=== PATIENT | male | born 1990 | race Caucasian/White ===

== ENCOUNTER 2020-08-25 10:42 | Emergency (ER) | payer MEDICAID, SELFPAY ==
[2020-08-25 10:54] VITALS: BP 144/102; PULSE 98; RESP 18; O2SAT 97
--- NOTE | 2020-08-25 11:15 | DI.RAD_ITS ---
EXAM: XR LUMBAR SPINE COMPLETE CLINICAL HISTORY: bending/lifting injury. felt pop. TECHNIQUE: 2D digital imaging was performed. COMPARISON: No exams were available for comparison FINDINGS: There is no evidence of fracture, listhesis, or pars defects. All of the disc spaces in the lumbar s pine exhibit normal height. No osseous lesions. No facet arthropathy. No scoliosis. Sacroiliac juan ints appear unremarkable. IMPRESSION: No significant radiographic findings on these five views of the lumbosacral spine DATA REPOSITORY: RADIATION DOSE DELIVERED:
--- NOTE | 2020-08-25 11:31 | ED.GENADUL_ITS ---
Discharge Plan Disposition Patient Disposition: HOME Condition: Stable Discharge Details Clinical Impression: Back pain Primary Care Provider: None,None ED Provider: Wiliam Petit Home Meds and New Rx's Prescriptions: New lidocaine [Lidoderm] 5 % adhesive patch,medicated 1 patch topical DAILY Qty: 15 RF: 0 naproxen [Naprosyn] 500 mg tablet 500 mg PO BID PRNQty: 20 RF: 0 Continued calcium carbonate [Tums] 200 MG tablet,chewable 400 mg PO PRN PRNRF: 0 acetaminophen 500 mg Capsule 1,000 mg PO Q6H PRNRF: 0 Discharge Instructions Instructions: Back Pain (ED) Additional Instructions: X-ray unremarkable for any obvious emergent process. Lidoderm patches and Naprosyn as directed. Gentle stretching as tolerated. Cool and/or warm compresses every 2 hours for 20 minutes. Please watch for new or worsening symptoms and return to the ER for any concerns. I have placed you onto the care management list, they should be contacting you over the next couple of business days to help expedite outpatient primary care provider. As we discussed outpatient MRI may be indicated for your ongoing back pain if you do not respond to conservative care. Medical Decision Making 29-year-old gentleman with chronic back pain injured his back 2 days ago while attempting to lift a trailer hitch. Was bent over, lifted, felt and heard a pop. Reports pain and tingling shooting down his left leg along the posterior aspect but not past his knee. Denies numbness or weakness. Denies incontinence or retention both bowel and bladder. Clinically he is neurologically intact, appears nontoxic, but is uncomfortable. Discussed options, will provide a single injection of IM Toradol, Lidoderm patch, and obtain a lumbar spine x-ray. He does not have a primary care provider and therefore I will place him on the care management list to help expedite outpatient care, we did discuss the importance and likelihood of potential MRI for his ongoing symptoms. He has used physical therapy in the past, and does not want to move forward with the sickle therapy as he felt as though it was not very helpful. X-ray of his lumbar spine read by me is unremarkable, confirmed by radiology. Discussed x-ray findings and disposition with patient. He reports moderate relief with the medications however upon movement his pain does increase. He remains neurologically intact. He has no additional questions or concerns and is comfortable discharge at this time. Medical Records Medical records reviewed: Yes I reviewed the patient's medical records. HPI General Mode of arrival: ambulatory . Date/Time Provider Initiated Documentation: 08/25/20 11:00 . Limitations to Documentation: no limitations . Information obtained by: patient . HPI Narrative: This is a 29-year-old gentleman who reports a history of chronic back pain, exacerbated 2 days ago. He reports 2 days ago he was attempting to lift a trailer hitch, it was frozen, in the process of being bent over and lifting he felt and heard a pop in his left lower back. He reports that his typical pain is moderate however this is severe, worse with movement. He has pain and tingling that radiates down his left leg along the posterior aspect to his knee but not below the knee. He denies any recent illness or trauma. He denies any abdominal pain, nausea, vomiting, urinary or bladder retention or incontinence, numbness or tingling in his groin, symptoms down his right leg. He has taken [id number] Tylenol with minimal relief. He does not have a local primary care provider. He has tried physical therapy in the past but discontinued it because he felt as though it was too painful. Patient has never had an MRI for his chronic back pain. Reports marijuana use, no other drug use. Related Data Home Medications Medication Instructions Recorded Confirmed calcium carbonate [Tums] 400 mg PO PRN PRN 02/01/16 08/25/20 acetaminophen 1,000 mg PO Q6H PRN 08/25/20 08/25/20 lidocaine [Lidoderm] 1 patch TOPICAL DAILY #15 ea 08/25/20 naproxen [Naprosyn] 500 mg PO BID PRN #20 tab 08/25/20 Previous Rx's Medication Instructions Recorded lidocaine [Lidoderm] 1 patch TOPICAL DAILY #15 ea 08/25/20 naproxen [Naprosyn] 500 mg PO BID PRN #20 tab 08/25/20 Allergies Allergy/AdvReac Type Severity Reaction Status Date / Time No Known Allergies Allergy Unverified 08/25/20 10:58 General Stated Complaint: Nk/Back Pain JESUS: 3 Review of Systems Constitutional Constitutional: Denies fever(s) and Denies weakness Cardiovascular Cardiovascular: Denies chest pain and Denies dyspnea Respiratory Respiratory: Denies dyspnea Gastrointestinal Gastrointestinal: Denies abdominal pain, Denies constipation, Denies fecal incontinence, Denies nausea and Denies vomiting Genitourinary Genitourinary: Denies urinary hesitancy and Denies urinary incontinence Musculoskeletal Musculoskeletal: Reports back pain, Denies numbness, Reports stiffness and Reports tingling Integumentary/Breasts Skin/Breast: Denies erythema Neurologic Neurologic: Denies numbness, Reports tingling and Denies weakness [facility] Social History Smoking/Tobacco Use Status: Current every day Tobacco Type: cigarettes Smoking risk assessment performed?: Yes Alcohol Intake: current Alcohol Intake frequency: holidays/special occasions only Drug use: Daily Substance use type: marijuana Do you feel safe at home: Yes Do you feel safe in your relationship?: Yes Exam Const General: cooperative, healthy appearing and no acute distress Orientation: alert, awake and oriented x3 HENMT Head: normal to inspection, normocephalic and atraumatic Eyes General: appearance normal, both eyes and all related structures Conjunctivae: conjunctivae normal Sclera: sclerae normal Neck Neck: normal visual inspection, full ROM, trachea midline and supple Resp Effort & Inspection: normal respiratory effort and able to speak in complete sentences Auscultation: clear to auscultation bilaterally Cardio Rate: regular rate Rhythm: regular rhythm GI Palpation: soft and nontender Back/Spine/Pelvis Back: no CVA tenderness and back tenderness Thoracic/Lumbar Spine: thoracic and lumbar spine normal to inspection, pain with thoraco-lumbar ROM, paraspinal tenderness (Left-sided), thoraco-lumbar ROM limited (Patient unable to fully extend secondary to increased pain), No thoraco-lumbar spasm and No thoracic spinal tenderness Pelvis: no pain with anterior-posterior compression and no pain with lateral compression Skin General skin exam: no rashes or lesions noted Neuro General: patient alert, patient awake, moves all extremities and no focal motor deficits Cognition: normal cognition Speech: speech normal Gait: antalgic Motor: muscle tone normal throughout and strength 5/5 throughout Sensory Exam: no sensory deficits noted Extrem General: normal to inspection, full ROM and capillary refill normal Psych Appearance: grossly normal Mental Status: mental status grossly normal Course Vital Signs Vital signs: Vital Signs Pulse 98 H 08/25/20 10:54 Respiratory Rate 18 08/25/20 10:54 Blood Pressure 144/102 H 08/25/20 10:54 Pulse Oximetry 97 08/25/20 10:54 Pulse 98 H 08/25/20 10:54 Respiratory Rate 18 08/25/20 10:54 Respiratory Effort Non-Labored 08/25/20 11:00 Blood Pressure 144/102 H 08/25/20 10:54 Blood Pressure Position Sitting 08/25/20 10:54 Pulse Oximetry 97 08/25/20 10:54 Oxygen Delivery Method Room Air 08/25/20 10:54 Oxygen Flow Rate 0 08/25/20 10:54 Pain Level 6 08/25/20 10:54
--- NOTE | 2020-08-25 11:36 | NUR.NOTE ---
REFERRAL TO CARE MANAGEMENT TO ESTABLISH PCP ROUTINE. IN ED FOR BACK PAIN.Nursing Note:
[2020-08-25] MEDS: Lidocaine 5% Patch 1 PATCH TP (11:39)
[2020-08-25] MEDS: Ketorolac 60 MG/2 ML VIAL IM (11:39)
[2020-08-25 13:19] VITALS: BP 124/85; PULSE 82; RESP 16; TEMP 36.6; O2SAT 98
--- NOTE | 2020-08-25 18:38 | PDOC.ERCMPRO ---
- If Service Date Differs Date of service: 08/25/20 Time of Service: 18:38 Care Management Progress Note Jonh is seen in the ED for back pain. At the request of ED provider, CM coordinates a referral to Steve Gurrola of [facility], on-call provider, to assist Jonh in obtaining a follow up appointment and in establishing care with a PCP.
== END 2020-08-25 13:19 | disposition home or self-care (01) ==
PROVIDERS: Emergency Provider Physician Assistant
DX: M54.5 Low back pain (principal); G89.29 Other chronic pain
CPT/HCPCS: 96372; 99284; 72110; J1885

== ENCOUNTER 2021-09-10 16:04 | Emergency (ER) | payer MEDICAID, SELFPAY ==
[2021-09-10 16:10] VITALS: BP 150/94; PULSE 88; RESP 14; TEMP 36.8; O2SAT 96
[2021-09-10] MEDS: Normal Saline 1,000 ML 1000 ML IV (16:25)
[2021-09-10 16:34] LABS: Lactate 1.1 mmol/L (0.6-1.4)
--- NOTE | 2021-09-10 16:35 | W.ED.GENAD ---
Discharge Plan Disposition Patient Disposition: HOME Condition: Improving Discharge Details Clinical Impression: Abdominal pain, Nausea & vomiting Primary Care Provider: None,None ED Provider: Wiliam Petit Home Meds and New Rx's Prescriptions: New ondansetron 4 mg tablet,disintegrating 4 mg PO TID 3 Days Qty: 9 0RF dicyclomine 20 mg tablet 20 mg PO QID Qty: 20 0RF famotidine [Pepcid] 20 mg tablet 20 mg PO BID Qty: 30 0RF Continued acetaminophen 500 mg Capsule 1,000 mg PO Q6H PRN0RF Discontinued naproxen [Naprosyn] 500 mg tablet 500 mg PO BID PRNQty: 20 0RF Discharge Instructions Instructions: Acute Nausea and Vomiting (ED), Abdominal Pain (ED) Additional Instructions: Your laboratory values did not reveal any obvious emergent process today. Please quit smoking and drinking alcohol as these both can worsen ulcers, gastritis, abdominal symptoms. I have provided you with a prescription for Bentyl, Pepcid, Zofran, please take these as directed. Watch for new or worsening symptoms and return to the ER for any concerns. I have placed you on the care management list to help expedite outpatient primary care follow-up. I do recommend contacting the [facility] GI team that you have seen in the past to see if they will evaluate you without a referral, if not, this will need to go through your primary care provider as well. I do believe follow-up with your GI is indicated for your ongoing abdominal pain as endoscopy and/or colonoscopy may be logical next testing. Discharge Data Discharge Date/Time-TO BE ENTERED AT DEPARTURE: 09/10/21 18:15 Medical Decision Making This is a 30-year-old gentleman, current smoker, at least a few beers every night, presenting to the ER reporting chronic abdominal pain for years, intermittent nausea and vomiting, diarrhea and constipation. He denies black tarry stools or bright red blood in his stools. He states one episode of darker emesis of the past couple of months but this is not typical. He does have a history of take an NSAID on a fairly regular basis as well. Patient states that he has had this worked up in the past but was unable to continue to follow at [facility] GI. While he was having this evaluated told it was something wrong with my stomach lining. He states now for the past couple of month he felt as though there was a lump along his abdomen, right side, and wonders if this could be a hernia or an ulcer. He denies recent illness or trauma. Nothing really makes the pain worse or better. He denies fever, chest pain, short of breath, dysuria, radiation of pain into his groin or into his back. Clinically he appears well, toxic, use still from difficulty. Abdomen is soft tender I do not appreciate any obvious hernia. He tells me that he was recently at [facility] for the same, they performed a CT of his abdomen and pelvis that was unremarkable, did not show a hernia. Given the overall duration and his multitude of symptoms, certainly question IBS, but given his potential coffee-ground emesis, smoking, alcohol use, NSAID therapy, certainly concerning for gastritis, ulcer, H. pylori, etc. Based upon his presentation extremely low suspicion for infectious process today. I do not appreciate any obvious hernia. Extremely low suspicion for incarcerated hernia. Plan is to obtain IV access, give IV fluids, Protonix, did, Zofran and obtain routine screening laboratory values including a lactate. Laboratory values reveal mild nonspecific leukocytosis of 49, no anemia. Platelet count is appropriate. Lactate of 1.1, chemistries reveal a glucose of 134 AST 14 alk phosphatase 119, otherwise unremarkable. Urinalysis unremarkable. Discussed benign work-up with patient. He is relieved, reports that overall the medication has helped but he does occasionally get cramping. We discussed his symptoms and the length, recommended discontinuing drinking alcohol smoking, I will provide a prescription for Pepcid, Zofran and Bentyl. I will place him on the care management list to help expedite outpatient primary care follow-up as well as hopeful GI follow-up at [facility]. At this time I see no clear indication to repeat emergent CT imaging of his abdomen and pelvis. Patient is agreeable to this plan and has no additional questions or concerns. Standard discharge and return precautions were provided. This documentation was generated using [employer]ation system, please disregard any oddities of phrase or misspellings. Medical Records Medical records reviewed: Yes I reviewed the patient's medical records. Lab Data Lab results reviewed: Yes I reviewed the patient's lab results. Labs: Laboratory Tests Range/Units 09/10/21 09/10/21 09/10/21 16:23 16:23 16:23 WBC (4.4-10.8) 10^3/uL 11.49 H RBC (4.36-5.78) 10^6/uL 5.83 H Hgb (13.5-17.5) g/dL 17.5 Hct (40.0-50.0) % 52.2 H MCV (80-95) fL 89.5 MCH (27.0-33.0) pg 30.0 MCHC (32.0-36.0) % 33.5 RDW (11.8-14.1) % 11.7 L Plt Count (130-400) 10^3/uL 263 MPV (8.0-11.0) fL 10.1 Immature Gran % 0.2 Neutrophils % 68.9 Lymphocytes % 23.4 Monocytes % 6.2 Eosinophils % 1.0 Basophils % 0.3 Nucleated RBC % % 0 Absolute Neutrophils (1.2-6.7) 10^3/uL 7.92 H Absolute Lymphocytes (1.2-3.4) 10^3/uL 2.69 Absolute Monocytes (0.1-0.8) 10^3/uL 0.71 Absolute Eosinophils (0.0-0.7) 10^3/uL 0.11 Absolute Basophils (0.0-0.2) 10^3/uL 0.03 VBG Lactate (0.6-1.4) mmol/L 1.1 Sodium (136-145) mmol/L 139 Potassium (3.5-5.1) mmol/L 4.0 Chloride (98-107) mmol/L 103 Carbon Dioxide (21.0-32.0) mmol/L 28.1 Anion Gap (3-11) mmol/L 7.9 BUN (7-18) mg/dL 14 Creatinine (0.70-1.30) mg/dL 1.1 Estimated GFR/1.73 m2 (mL/min/1.73m2) >= 60.00 Glucose (74-106) mg/dL 124 H Calcium (8.5-10.1) mg/dL 8.8 Total Bilirubin (0.2-1.0) mg/dL 0.3 AST (15-37) U/L 14 L ALT (16-63) U/L 26 Alkaline Phosphatase (46-116) U/L 119 H Total Protein (6.4-8.2) g/dL 8.0 Albumin (3.4-5.0) g/dL 3.9 Lipase (73-393) U/L 167 Urine Color (Yellow) Urine Clarity (Clear) Urine pH (5-8) Ur Specific Hale (1.005-1.025) Urine Protein (Negative) mg/dL Urine Ketones (Negative) mg/dL Urine Blood (Negative) Urine Nitrite (Negative) Urine Bilirubin (Negative) Urine Urobilinogen (Up TO 0.2) EU/dL Ur Leukocyte Esterase (Negative) Urine Glucose (Negative) mg/dL Range/Units 09/10/21 16:54 WBC (4.4-10.8) 10^3/uL RBC (4.36-5.78) 10^6/uL Hgb (13.5-17.5) g/dL Hct (40.0-50.0) % MCV (80-95) fL MCH (27.0-33.0) pg MCHC (32.0-36.0) % RDW (11.8-14.1) % Plt Count (130-400) 10^3/uL MPV (8.0-11.0) fL Immature Gran % Neutrophils % Lymphocytes % Monocytes % Eosinophils % Basophils % Nucleated RBC % % Absolute Neutrophils (1.2-6.7) 10^3/uL Absolute Lymphocytes (1.2-3.4) 10^3/uL Absolute Monocytes (0.1-0.8) 10^3/uL Absolute Eosinophils (0.0-0.7) 10^3/uL Absolute Basophils (0.0-0.2) 10^3/uL VBG Lactate (0.6-1.4) mmol/L Sodium (136-145) mmol/L Potassium (3.5-5.1) mmol/L Chloride (98-107) mmol/L Carbon Dioxide (21.0-32.0) mmol/L Anion Gap (3-11) mmol/L BUN (7-18) mg/dL Creatinine (0.70-1.30) mg/dL Estimated GFR/1.73 m2 (mL/min/1.73m2) Glucose (74-106) mg/dL Calcium (8.5-10.1) mg/dL Total Bilirubin (0.2-1.0) mg/dL AST (15-37) U/L ALT (16-63) U/L Alkaline Phosphatase (46-116) U/L Total Protein (6.4-8.2) g/dL Albumin (3.4-5.0) g/dL Lipase (73-393) U/L Urine Color (Yellow) Yellow Urine Clarity (Clear) Clear Urine pH (5-8) 7.0 Ur Specific Hale (1.005-1.025) 1.025 Urine Protein (Negative) mg/dL Negative Urine Ketones (Negative) mg/dL Negative Urine Blood (Negative) Negative Urine Nitrite (Negative) Negative Urine Bilirubin (Negative) Negative Urine Urobilinogen (Up TO 0.2) EU/dL 0.2 Ur Leukocyte Esterase (Negative) Negative Urine Glucose (Negative) mg/dL Negative HPI General Mode of arrival: ambulatory. Date/Time Provider Initiated Documentation: 09/10/21 16:05. Limitations to Documentation: no limitations. Information obtained by: patient. History of Present Illness 30 year old M presents to the emergency department with the chief complaint of abd pain, n/v, described as moderate, with intensity rated at 6. Quality is described as aching, and is localized to the abdomen. Patient reports no radiation. Patient started experiencing this year(s) (5) and it has been intermittent. improves with No relieving factors improve symptom(s), No exacerbating factors reported . Patient notes nausea/vomiting. Patient did receive the following treatments prior to arrival, none Related Data Home Medications Medication Instructions Recorded Confirmed acetaminophen 500 mg capsule 1,000 mg PO Q6H PRN 08/25/20 09/10/21 dicyclomine 20 mg tablet 20 mg PO QID #20 tab 09/10/21 famotidine 20 mg tablet (Pepcid) 20 mg PO BID #30 tab 09/10/21 ondansetron 4 mg disintegrating 4 mg PO TID 3 Days #9 tab 09/10/21 tablet Previous Rx's Medication Instructions Recorded dicyclomine 20 mg tablet 20 mg PO QID #20 tab 09/10/21 famotidine 20 mg tablet (Pepcid) 20 mg PO BID #30 tab 09/10/21 ondansetron 4 mg disintegrating 4 mg PO TID 3 Days #9 tab 09/10/21 tablet Allergies Allergy/AdvReac Type Severity Reaction Status Date / Time catapillars AdvReac Intermediate Skin Rash Uncoded 09/10/21 16:17 tide laundry detergent AdvReac Intermediate Skin Rash Uncoded 09/10/21 16:17 General Stated Complaint: Abd Prob JESUS: 3 Review of Systems Constitutional Constitutional: Denies fever(s) and Denies headache(s) ENT Ears, Nose, Mouth, and Throat: Denies headache(s) Cardiovascular Cardiovascular: Denies chest pain and Denies dyspnea Respiratory Respiratory: Denies cough and Denies dyspnea Gastrointestinal Gastrointestinal: Reports abdominal pain, Denies melena, Denies hematochezia, Reports constipation, Reports diarrhea, Reports nausea and Reports vomiting Genitourinary Genitourinary: Denies dysuria Musculoskeletal Musculoskeletal: Denies back pain Integumentary/Breasts Skin/Breast: Denies rash Neurologic Neurologic: Denies headache(s) PFSH All Active Problems (Updated 09/10/21 @ 17:51 by ALFREDO Rodriguez) Back pain (Acute) Abdominal pain (Acute) Nausea & vomiting (Acute) Social History Smoking/Tobacco Use Status: Current every day Tobacco Type: cigarettes Smoking risk assessment performed?: Yes Alcohol Intake: current Alcohol Intake frequency: 3 or more drinks per day Alcohol type: beer Drug use: Daily Substance use type: marijuana Details: smokes pot with alcohol Do you feel safe at home: Yes Do you feel safe in your relationship?: Yes Exam Const General: cooperative, healthy appearing, comfortable and no acute distress Orientation: alert and awake [facility] Head: normal to inspection, normocephalic and atraumatic Face and sinus: normal facial exam Mouth: moist mucous membranes Eyes General: appearance normal, both eyes and all related structures Conjunctivae: conjunctivae normal Neck Neck: normal visual inspection, full ROM, trachea midline and supple Resp Effort & Inspection: normal respiratory effort and able to speak in complete sentences Auscultation: clear to auscultation bilaterally Cardio Rate: regular rate Rhythm: regular rhythm GI Inspection: normal to inspection Palpation: soft, not firm, no guarding, no pulsatile masses, not rigid and nontender Auscultation: normal bowel sounds Back/Spine/Pelvis Back: no CVA tenderness and No back tenderness Skin General skin exam: no rashes or lesions noted Neuro General: patient alert, patient awake, moves all extremities and no focal motor deficits Cognition: normal cognition Speech: speech normal Gait: normal gait Sensory Exam: no sensory deficits noted Extrem General: normal to inspection, full ROM and capillary refill normal Psych Appearance: grossly normal Mental Status: mental status grossly normal Course Vital Signs Vital signs: Vital Signs Temperature 36.8 C 09/10/21 16:10 Pulse 88 09/10/21 16:10 Respiratory Rate 14 09/10/21 16:10 Blood Pressure 150/94 H 09/10/21 16:10 Pulse Oximetry 96 09/10/21 16:10 Temperature 36.8 C 09/10/21 16:10 Temperature Source Skin 09/10/21 16:10 Pulse 88 09/10/21 16:10 Respiratory Rate 14 09/10/21 16:10 Respiratory Effort 09/10/21 16:19 Blood Pressure 150/94 H 09/10/21 16:10 Blood Pressure Position Supine 09/10/21 16:10 Pulse Oximetry 96 09/10/21 16:10 Oxygen Delivery Method Room Air 09/10/21 16:10 Oxygen Flow Rate 0 09/10/21 16:10 Pain Level 6 09/10/21 16:10 Comment 09/10/21 16:10 Lab/Test Results Lab/Test Results: Laboratory Tests Range/Units 09/10/21 16:23 VBG Lactate (0.6-1.4) mmol/L 1.1 PAWSS Have you Been Recently Intoxicated or Drunk Within the Last 30 days?: No Have you Ever Experienced Previous Episodes of Alcohol Withdrawal?: No Have you ever Experienced Withdrawal Seizures?: No Have you ever Experienced Delirium Tremens(DT)s?: No Have you ever undergone Alcohol Rehabilitation Treatment (i.e, inpt ot outpatient treatment programs)?: Yes Have you ever Experienced Blackouts?: No Have you ever Combined Alcohol with other Downers within the last 90 days?: No Have you ever Combined Alcohol with any other Substance of Abuse during the last 90 days?: Yes Positive Blood Alcohol level on Presentation? [PCS.BAL]: No Evidence of Increased Autonomic Activity (i.e. HR>120, tremor, sweating, agitation, nausea)?: No Result: 3
[2021-09-10 16:36] LABS: Abs Immature Grans 0.02 10^3/uL (0.0-0.06); Absolute Lymphocyte Count 2.69 10^3/uL (1.2-3.4); Absolute Monocyte Count 0.71 10^3/uL (0.1-0.8); Basophils % 0.3; HCT 52.2 % (40.0-50.0); HGB 17.5 g/dL (13.5-17.5); Immature Grans % 0.2; Lymphocytes % 23.4; MCHC 33.5 % (32.0-36.0); MCV 89.5 fL (80-95); MPV 10.1 fL (8.0-11.0); Monocytes % 6.2; Neutrophils % 68.9; Nucleated RBC 0 %; Platelet Count 263 10^3/uL (130-400); RBC 5.83 10^6/uL (4.36-5.78); RDW 11.7 % (11.8-14.1); RDW-SD 37.9 fL; WBC 11.49 10^3/uL (4.4-10.8)
[2021-09-10 16:40] LABS: Absolute Basophil Count 0.03 10^3/uL (0.0-0.2); Absolute Eosinophil Count 0.11 10^3/uL (0.0-0.7); Absolute Neutrophil Count 7.92 10^3/uL (1.2-6.7)
[2021-09-10] MEDS: Ondansetron 4 MG/2 ML VIAL IVP (16:42)
[2021-09-10] MEDS: Pantoprazole 40 MG VIAL IVP (16:43)
[2021-09-10] MEDS: FAMOTIDINE 20 MG in Normal Saline 100 ML 400 MG IVPB (16:45)
[2021-09-10 16:52] LABS: ALT 26 U/L (16-63); AST 14 U/L (15-37); Albumin 3.9 g/dL (3.4-5.0); Alkaline Phosphatase 119 U/L (46-116); Anion Gap 7.9 mmol/L (3-11); BUN 14 mg/dL (7-18); Bilirubin, Total 0.3 mg/dL (0.2-1.0); CO2 28.1 mmol/L (21.0-32.0); CREATININE 1.1 mg/dL (0.70-1.30); Calcium 8.8 mg/dL (8.5-10.1); Chloride 103 mmol/L (98-107); Glucose 124 mg/dL (74-106); Lipase 167 U/L (73-393); Sodium 139 mmol/L (136-145)
[2021-09-10 17:06] LABS: Bilirubin Negative (Negative); Blood Negative (Negative); Clarity Clear (Clear); Glucose Negative (Negative); Ketones Negative (Negative); Leukocyte Esterase Negative (Negative); Nitrite Negative (Negative); Specific Gravity 1.025 (1.005-1.025); Urobilinogen 0.2 EU/dL (Up TO 0.2)
--- NOTE | 2021-09-10 17:27 | NUR.NOTE ---
Leroy Petit requesting the patient be established with PCP for PCP placement and GI evaluation- abd pain,nausea and vomiting within 1-2 wks CLB
[2021-09-10 18:05] VITALS: BP 155/105; PULSE 82; RESP 18; TEMP 36.4; O2SAT 96
[2021-09-10 18:10] VITALS: BP 155/105; PULSE 82; RESP 18; TEMP 36.4; O2SAT 96
== END 2021-09-10 18:15 | disposition home or self-care (01) ==
PROVIDERS: Emergency Provider Physician Assistant
DX: R10.9 Unspecified abdominal pain (principal); R11.2 Nausea with vomiting, unspecified; F17.210 Nicotine dependence, cigarettes, uncomplicated
CPT/HCPCS: 36415; 80053; 83690; 96361; 96365; 96375; 99284; 81003; 83605; 85025; 99283; J2405

== ENCOUNTER → 2021-10-04 01:54 | Outpatient (CLI) | payer MEDICAID, SELFPAY ==
--- NOTE | 2021-10-04 07:47 | DI.CT_ITS ---
Exam(s) CT ABDOMEN PELVIS W EXAM: CT ABDOMEN PELVIS W CLINICAL HISTORY: abd pain,? hernia,R10.9. TECHNIQUE: Imaging Protocol: Axial computed tomography images with coronal and sagittal reformatted images were created and reviewed CONTRAST MATERIAL: Intravenous: Omnipaque 350 Contrast volume:100 ml Oral: yes / COMPARISON: CT ABD PELVIS WO CONTRAST from 02/01/2016 FINDINGS: ABDOMEN: Lung Bases: Normal where visualized. Liver: Normal density. No measurable mass. Gallbladder and biliary tract: No radiodense calculus or dilation. Pancreas: Normal density, no abnormal calcifications or inflammatory process. Spleen: Normal. Kidneys: Normal size, contour and axis. No radiodense stones or obstructive uropathy. No masses seen. Adrenal glands: No masses seen. Abdominal Aorta: Abdominal portion non-dilated. PELVIS: Bladder: Nearly empty. No gross wall thickening. No calculi.No focal mass. Bowel: Mild sigmoid diverticulosis. No obstruction or bowel wall thickening. Appendix normal. Peritoneal cavity: No ascites, collection or mesenteric inflammatory response. Bones: Within normal limits for age. Reproductive organs: Within normal limits. Lymph nodes: Unremarkable. Soft tissues: No inguinal or abdominal wall hernia. Impression: Unremarkable CT scan of the abdomen and pelvis. RADIATION DOSE DELIVERED: 1,140.32mGy.cm Total DLP DATA REPOSITORY: All CT scans at this facility are submitted to the National Radiology Data Registry (NRDR) Dose Index Registry (DIR) with the [employer] (A[employer]). RADIATION OPTIMIZATION: All CT scans at this facility use at least one of these dose optimization te chniques: automated exposure control; mA and/or kV adjustment per patient size (includes targeted exa ms where dose is matched to clinical indication); or iterative reconstruction.
[2021-10-04] MEDS: Breeza Beverage 473 ML BTL PO (13:53)
[2021-10-04] MEDS: Omnipaque 350 MG/ML 50 ML BTL PO (13:54)
[2021-10-04] MEDS: Omnipaque 350 MG/ML 100 ML BTL IJ (14:59)
[2021-10-04] MEDS: Normal Saline Flush 10 ML SYR IVP (14:59)
== END ==
PROVIDERS: PCP Nurse Practitioner Family; Visit Provider Nurse Practitioner Family
DX: R10.9 Unspecified abdominal pain (principal); K57.32 Diverticulitis of large intestine without perforation or abscess without bleeding
CPT/HCPCS: 74177; J3490; Q9967